=== PATIENT | male | born 1985 | race Caucasian/White ===

== ENCOUNTER 2023-08-23 18:15 | Emergency (ER) | payer SELFPAY ==
[2023-08-23] MEDS ORDERED: Albuterol/Ipratropium 3.0-0.5 MG/3 ML Neb Soln NEB ONE ×2 (18:26→18:49)
[2023-08-23] MEDS ORDERED: Sodium Chloride 0.9% 1,000 ML IV ONE (18:26)
[2023-08-23] MEDS ORDERED: methylPREDNISolone Sodium Succinate 125 MG/2 ML SDV IVPUSH ONE (18:26)
[2023-08-23] MEDS ORDERED: Sodium Chloride 0.9% 10 ML Syringe FLUSH PRN (18:26)
[2023-08-23] MEDS ORDERED: Magnesium Sulfate/Water 2 GM in Premix Bag 1 BAG IV ONE (18:49)
[2023-08-23 18:50] LABS: BASOPHILS ABSOLUTE AUTO 0.06 10^3/uL (0.00-0.10); BASOPHILS PERCENT AUTO 0.4 % (0.0-1.0); EOSINOPHILS ABSOLUTE AUTO 1.57 10^3/uL (0.10-0.30); HEMATOCRIT 42.9 % (40.0-52.0); HEMOGLOBIN 13.9 g/dL (13.0-17.0); IMMATURE GRAN ABSOLUTE AUTO 0.03 10^3/uL (0.00-0.50); IMMATURE GRAN PERCENT AUTO 0.2 % (0.0-5.0); LYMPHOCYTES ABSOLUTE AUTO 4.25 10^3/uL (1.00-4.00); LYMPHOCYTES PERCENT AUTO 29.7 % (20.0-40.0); MEAN CORPUSCULAR HEMOGLOBIN 27.4 pg (27.0-31.0); MEAN CORPUSCULAR HGB CONC 32.4 g/dL (32.0-36.0); MEAN CORPUSCULAR VOLUME 84.6 fL (82.0-92.0); MEAN PLATELET VOLUME 9.1 fL (7.4-10.4); MONOCYTES ABSOLUTE AUTO 0.86 10^3/uL (0.10-0.80); NEUTROPHILS ABSOLUTE AUTO 7.55 10^3/uL (2.50-7.00); NEUTROPHILS PERCENT AUTO 52.7 % (50.0-70.0); PLATELET COUNT,PLT 290 10^3/uL (150-400); RED BLOOD CELL COUNT 5.07 10^6/uL (4.50-6.00); RED CELL DISTRIBUTION WIDTH 13.4 % (11.5-14.5); WHITE BLOOD CELL COUNT,WBC 14.32 10^3/uL (5.00-10.00)
[2023-08-23 19:03] LABS: ANION GAP 16.1 mmol/L (5-15); CALCIUM 9.1 mg/dL (8.7-10.3); CARBON DIOXIDE,CO2 24.3 mmol/L (21.0-32.0); EST CRCL DRUG DOSING (CG) 124.17 mL/min; POTASSIUM,K 3.4 mmol/L (3.5-5.1)
[2023-08-23 19:25] LABS: CORONAVIRUS COVID-19 NAA NEGATIVE (NEGATIVE); INFLUENZA A NAA NEGATIVE (NEGATIVE); INFLUENZA B NAA NEGATIVE (NEGATIVE); RESPIRATORY SYNCYTIAL VIR NAA NEGATIVE (NEGATIVE)
== END 2023-08-23 20:16 | disposition home or self-care (01) ==
LOC: KA.ED 18:15
DX: J45.901 Unspecified asthma with (acute) exacerbation (principal); Z20.822 Contact with and (suspected) exposure to COVID-19
CPT/HCPCS: 0241U; 71045; 80048; 85025; 94640; 96361; 96365; 96375; 99284; 99285-25; J2930; J3475; J3490; J7030; J7620-GY